=== PATIENT | male | born 1990 | race Caucasian/White ===

== ENCOUNTER 2017-12-21 17:03 | Emergency (ER) | payer BC ==
[~2017-12-21] VITALS: Ht 185.4 cm; Wt 126.0 kg
[2017-12-21 17:15] VITALS: BP 135/55
== END 2017-12-21 19:04 | disposition home or self-care (01) ==
LOC: ER 17:04
DX: R20.0 Anesthesia of skin (principal); R20.2 Paresthesia of skin
CPT/HCPCS: 99283